=== PATIENT | male | born 1985 | race Caucasian/White ===

== ENCOUNTER 2016-10-05 20:53 | Inpatient (IN) | payer MEDICAID ==
[~2016-10-05] VITALS: Ht 167.6 cm; Wt 115.7 kg
[~2016-10-05 20:53] MED LIST: CARB200T PO; CARB200T6 PO; LAMO25 PO; LAMO25TA3 PO; RISP4 PO
[2016-10-06 00:27] VITALS: BP 130/64
[2016-10-06] MEDS ORDERED: ZOLPIDEM TARTRATE 10 MG TABLET PO PRN (01:00)
[2016-10-06] MEDS ORDERED: HALOPERIDOL 5 MG TABLET PO PRN (01:00)
[2016-10-06 01:26] VITALS: BP 145/70
[2016-10-06] MEDS ORDERED: VENL50TA44 PO (01:40)
[2016-10-06] MEDS ORDERED: CHLO100T24 PO (01:40)
[2016-10-06] MEDS ORDERED: LAMO25 PO (01:40)
[2016-10-06 08:16] VITALS: BP 119/68
[2016-10-06 16:06] VITALS: BP 116/65
[2016-10-07 07:11] VITALS: BP 119/71
[2016-10-07 08:14] VITALS: BP 107/61
[2016-10-07] MEDS ORDERED: LITHIUM CARBONATE 300 MG CAPSULE PO SCH (09:00)
[2016-10-07] MEDS ORDERED: LITH300C3 PO (09:53)
== END 2016-10-07 10:55 | DRG 885 ==
LOC: B3A 10-06 01:02
PROVIDERS: ADMIT Psychiatry & Neurology Psychiatry; ATTEND Psychiatry & Neurology Psychiatry
DX: F25.0 Schizoaffective disorder, bipolar type (principal); F14.20 Cocaine dependence, uncomplicated; R45.851 Suicidal ideations; F17.210 Nicotine dependence, cigarettes, uncomplicated; F10.20 Alcohol dependence, uncomplicated; G56.00 Carpal tunnel syndrome, unspecified upper limb; E03.9 Hypothyroidism, unspecified; Z91.5 Personal history of self-harm; Z79.899 Other long term (current) drug therapy; Z88.5 Allergy status to narcotic agent; Z91.013 Allergy to seafood

== ENCOUNTER 2016-11-18 15:03 | Inpatient (IN) | payer MEDICAID ==
[~2016-11-18] VITALS: Ht 172.7 cm; Wt 115.9 kg
[~2016-11-18 15:03] MED LIST changes: -CARB200T PO; -CARB200T6 PO; -LAMO25 PO; -LAMO25TA3 PO; +LITH300C3 PO; -RISP4 PO
[2016-11-18] MEDS ORDERED: ZOLPIDEM TARTRATE 10 MG TABLET PO PRN (20:30)
[2016-11-18] MEDS ORDERED: LORazepam 2 MG TABLET PO PRN (20:30)
[2016-11-18] MEDS ORDERED: HALOPERIDOL 5 MG TABLET PO PRN (20:30)
[2016-11-18] MEDS ORDERED: PNEUMOCOCCAL VACCINE POLYVALENT 0.5 ML VIAL [PPSV23] IM ONE (21:45)
[2016-11-18 21:51] VITALS: BP 128/76
[2016-11-19 00:09] VITALS: BP 108/73
[2016-11-19] MEDS ORDERED: DiphenhydrAMINE HCL 25 MG CAPSULE PO ONE (00:30)
[2016-11-19 07:44] LABS: BASOPHILS % (AUTO) 0.4 % (0.0-2.0); EOSINOPHILS % (AUTO) 2.6 % (1.0-6.0); HEMATOCRIT 37.6 % (41-53); HEMOGLOBIN 12.2 g/dL (13.5-17.5); LYMPHOCYTES # (AUTO) 2.8 K/uL (1.0-4.8); LYMPHOCYTES % (AUTO) 23.2 % (22.0-44.0); MEAN CORPUSCULAR HEMOGLOBIN 26.9 pg (26.0-34.0); MEAN CORPUSCULAR HGB CONC 32.4 G/dL (31.0-37.0); MEAN CORPUSCULAR VOLUME 83 fL (80-100); MONOCYTES # (AUTO) 0.9 K/uL (0.1-1.0); MONOCYTES % (AUTO) 7.8 % (2.0-9.0); NEUTROPHILS # (AUTO) 7.9 K/uL (1.8-7.7); PLATELET COUNT (AUTO) 400 K/uL (150-450); RED BLOOD CELL COUNT(AUTO) 4.53 MIL/uL (4.50-5.90); RED CELL DISTRIBUTION WIDTH 15.5 % (11.5-14.5)
[2016-11-19 08:27] LABS: ALANINE AMINOTRANSFERASE 32 U/L (12-78); ALBUMIN 3.5 g/dL (3.4-5.0); ANION GAP 11 mmol/L (8-16); ASPARTATE AMINOTRANSFERASE 15 U/L (15-37); BILIRUBIN,TOTAL 0.4 mg/dL (0.1-1.0); CALCIUM, TOTAL 8.6 mg/dL (8.8-10.5); CARBON DIOXIDE 27 mmol/L (22-29); CHLORIDE 102 mmol/L (98-107); CHOL/HDL RATIO 3.3 (4.2-7.3); CREATININE 0.91 mg/dL (0.60-1.30); GLOMERULAR FILTR. RATE CALC > 60 mL/min (>60); POTASSIUM 4.3 mmol/L (3.5-5.1); SODIUM SERUM 140 mmol/L (136-145); TOTAL PROTEIN, SERUM 7.1 g/dL (6.4-8.2); UREA NITROGEN, BLOOD 18 mg/dL (7-18); VALPROIC ACID 23 mcg/mL (50-100)
[2016-11-19] MEDS: NICOTINE 21 MG/24 HOUR PATCH TD SCH (08:59)
[2016-11-19] MEDS: LevETIRAcetam 500 MG TABLET PO SCH ×2 (08:59→17:25)
[2016-11-19] MEDS: CEPHALEXIN MONOHYDRATE 500 MG CAPSULE PO SCH ×4 (08:59→20:01)
[2016-11-19 09:21] VITALS: BP 109/61
[2016-11-19] MEDS: DiphenhydrAMINE HCL 50 MG CAPSULE PO PRN ×2 (11:22→20:01)
[2016-11-19 16:00] VITALS: BP 110/65
[2016-11-19] MEDS: LITHIUM CARBONATE 300 MG CAPSULE PO SCH (17:25)
[2016-11-19] MEDS: GEMFIBROZIL 600 MG TABLET PO SCH (17:42)
[2016-11-19] MEDS: OLANZapine 5 MG TABLET PO SCH (20:01)
[2016-11-19] MEDS ORDERED: IBUPROFEN 600 MG TABLET PO PRN (20:15)
[2016-11-19] MEDS ORDERED: FLUTICASONE/VILANTEROL 200-25 MCG/INH INHALER [14] IH PRN (20:15)
[2016-11-19] MEDS ORDERED: ACETAMINOPHEN 325 MG TABLET PO PRN (20:15)
[2016-11-19] MEDS ORDERED: ALBUTEROL SULFATE HFA 90 MCG/PUFF 8 GM INHALER IH PRN (20:15)
[2016-11-19 21:08] VITALS: BP 118/70
[2016-11-19] MEDS: LEVOTHYROXINE SODIUM 25 MCG TABLET PO SCH (21:15)
[2016-11-19 22:13] VITALS: BP 113/71
[2016-11-20 00:13] VITALS: BP 102/62
[2016-11-20] MEDS: LEVOTHYROXINE SODIUM 25 MCG TABLET PO SCH (06:43)
[2016-11-20] MEDS: GEMFIBROZIL 600 MG TABLET PO SCH ×2 (06:43→16:30)
[2016-11-20 07:56] LABS: BASOPHILS % (AUTO) 0.4 % (0.0-2.0); EOSINOPHILS % (AUTO) 3.3 % (1.0-6.0); HEMATOCRIT 40.2 % (41-53); LYMPHOCYTES # (AUTO) 3.2 K/uL (1.0-4.8); LYMPHOCYTES % (AUTO) 32.3 % (22.0-44.0); MEAN CORPUSCULAR HEMOGLOBIN 26.9 pg (26.0-34.0); MEAN CORPUSCULAR HGB CONC 32.3 G/dL (31.0-37.0); MEAN CORPUSCULAR VOLUME 83 fL (80-100); MONOCYTES # (AUTO) 0.7 K/uL (0.1-1.0); MONOCYTES % (AUTO) 7.2 % (2.0-9.0); NEUTROPHILS # (AUTO) 5.6 K/uL (1.8-7.7); NEUTROPHILS % (AUTO) 56.8 % (40.0-70.0); PLATELET COUNT (AUTO) 386 K/uL (150-450); RED BLOOD CELL COUNT(AUTO) 4.83 MIL/uL (4.50-5.90); RED CELL DISTRIBUTION WIDTH 15.1 % (11.5-14.5); WHITE BLOOD COUNT (AUTO) 9.9 K/uL (4.5-11.0)
[2016-11-20 08:05] LABS: LITHIUM 0.34 mmol/L (0.60-1.20)
[2016-11-20 08:44] VITALS: BP 102/66
[2016-11-20 08:55] LABS: ALANINE AMINOTRANSFERASE 26 U/L (12-78); ALBUMIN 3.6 g/dL (3.4-5.0); ANION GAP 7 mmol/L (8-16); ASPARTATE AMINOTRANSFERASE 13 U/L (15-37); BILIRUBIN,TOTAL 0.4 mg/dL (0.1-1.0); CARBON DIOXIDE 29 mmol/L (22-29); CHLORIDE 105 mmol/L (98-107); CREATININE 0.81 mg/dL (0.60-1.30); GLOMERULAR FILTR. RATE CALC > 60 mL/min (>60); POTASSIUM 4.6 mmol/L (3.5-5.1); SODIUM SERUM 141 mmol/L (136-145); THYROID STIMULATING HORMONE 1.56 uIU/mL (0.36-3.74); TOTAL PROTEIN, SERUM 7.1 g/dL (6.4-8.2); UREA NITROGEN, BLOOD 19 mg/dL (7-18)
[2016-11-20] MEDS: FLUTICASONE/VILANTEROL 200-25 MCG/INH INHALER [14] IH SCH (09:00)
[2016-11-20] MEDS: LevETIRAcetam 500 MG TABLET PO SCH ×2 (09:56→16:59)
[2016-11-20] MEDS: LamoTRIgine 100 MG TABLET PO SCH (09:56)
[2016-11-20] MEDS: LITHIUM CARBONATE 300 MG CAPSULE PO SCH ×2 (09:56→16:59)
[2016-11-20] MEDS: FLUoxetine HCL 20 MG CAPSULE PO SCH (09:56)
[2016-11-20] MEDS: CEPHALEXIN MONOHYDRATE 500 MG CAPSULE PO SCH ×4 (09:56→20:59)
[2016-11-20] MEDS: SULFAMETHOX/TRIMETH DS 800-160 MG/TABLET PO SCH ×2 (09:56→16:59)
[2016-11-20] MEDS: NICOTINE 21 MG/24 HOUR PATCH TD SCH (09:58)
[2016-11-20] MEDS: DiphenhydrAMINE HCL 50 MG CAPSULE PO PRN ×2 (11:22→18:15)
[2016-11-20] MEDS: OLANZapine 5 MG TABLET PO SCH (20:59)
[2016-11-21] MEDS: LEVOTHYROXINE SODIUM 25 MCG TABLET PO SCH (06:30)
[2016-11-21] MEDS: GEMFIBROZIL 600 MG TABLET PO SCH ×2 (06:37→16:09)
[2016-11-21] MEDS: LamoTRIgine 100 MG TABLET PO SCH (09:00)
[2016-11-21] MEDS: LITHIUM CARBONATE 300 MG CAPSULE PO SCH ×3 (09:00→17:00)
[2016-11-21] MEDS: FLUTICASONE/VILANTEROL 200-25 MCG/INH INHALER [14] IH SCH (09:00)
[2016-11-21] MEDS: FLUoxetine HCL 20 MG CAPSULE PO SCH (09:00)
[2016-11-21 09:03] VITALS: BP 108/62
[2016-11-21] MEDS: LevETIRAcetam 500 MG TABLET PO SCH ×2 (09:34→16:10)
[2016-11-21] MEDS: SULFAMETHOX/TRIMETH DS 800-160 MG/TABLET PO SCH ×2 (09:34→16:10)
[2016-11-21] MEDS: CEPHALEXIN MONOHYDRATE 500 MG CAPSULE PO SCH ×4 (09:34→20:43)
[2016-11-21] MEDS: NICOTINE 21 MG/24 HOUR PATCH TD SCH (09:34)
[2016-11-21] MEDS: DiphenhydrAMINE HCL 50 MG CAPSULE PO PRN (14:53)
[2016-11-21 16:00] VITALS: BP 117/73
[2016-11-21] MEDS: OLANZapine 5 MG TABLET PO SCH (20:43)
[2016-11-22] MEDS: LEVOTHYROXINE SODIUM 25 MCG TABLET PO SCH (06:35)
[2016-11-22] MEDS: GEMFIBROZIL 600 MG TABLET PO SCH ×2 (06:35→16:32)
[2016-11-22 06:47] VITALS: BP 102/67
[2016-11-22 08:45] VITALS: BP 105/70
[2016-11-22] MEDS: FLUTICASONE/VILANTEROL 200-25 MCG/INH INHALER [14] IH SCH (09:43)
[2016-11-22] MEDS: NICOTINE 21 MG/24 HOUR PATCH TD SCH (09:43)
[2016-11-22] MEDS: PROPRANOLOL HCL 10 MG TABLET PO SCH ×2 (09:43→16:33)
[2016-11-22] MEDS: CEPHALEXIN MONOHYDRATE 500 MG CAPSULE PO SCH ×4 (09:44→20:00)
[2016-11-22] MEDS: SULFAMETHOX/TRIMETH DS 800-160 MG/TABLET PO SCH ×2 (09:44→16:33)
[2016-11-22] MEDS: LevETIRAcetam 500 MG TABLET PO SCH ×2 (09:44→16:33)
[2016-11-22] MEDS: LITHIUM CARBONATE 300 MG CAPSULE PO SCH ×2 (09:44→16:33)
[2016-11-22] MEDS: FLUoxetine HCL 20 MG CAPSULE PO SCH (09:44)
[2016-11-22] MEDS: LamoTRIgine 100 MG TABLET PO SCH (09:44)
[2016-11-22] MEDS: DiphenhydrAMINE HCL 50 MG CAPSULE PO PRN (11:53)
[2016-11-22 16:00] VITALS: BP 116/71
[2016-11-22] MEDS: OLANZapine 5 MG TABLET PO SCH (20:00)
[2016-11-23 06:32] VITALS: BP 115/60
[2016-11-23] MEDS: LEVOTHYROXINE SODIUM 25 MCG TABLET PO SCH (06:50)
[2016-11-23] MEDS: GEMFIBROZIL 600 MG TABLET PO SCH (06:59)
[2016-11-23 08:13] VITALS: BP 116/67
[2016-11-23] MEDS: PROPRANOLOL HCL 10 MG TABLET PO SCH (09:33)
[2016-11-23] MEDS: FLUTICASONE/VILANTEROL 200-25 MCG/INH INHALER [14] IH SCH (09:33)
[2016-11-23] MEDS: NICOTINE 21 MG/24 HOUR PATCH TD SCH (09:33)
[2016-11-23] MEDS: LevETIRAcetam 500 MG TABLET PO SCH (09:33)
[2016-11-23] MEDS: SULFAMETHOX/TRIMETH DS 800-160 MG/TABLET PO SCH (09:33)
[2016-11-23] MEDS: FLUoxetine HCL 20 MG CAPSULE PO SCH (09:33)
[2016-11-23] MEDS: LamoTRIgine 100 MG TABLET PO SCH (09:33)
[2016-11-23] MEDS: LITHIUM CARBONATE 300 MG CAPSULE PO SCH (09:33)
[2016-11-23] MEDS: CEPHALEXIN MONOHYDRATE 500 MG CAPSULE PO SCH ×2 (09:34→12:51)
[2016-11-23] MEDS ORDERED: MAGNESIUM HYDROXIDE SUSPENSION 30 ML UDCUP PO PRN (10:30)
[2016-11-23] MEDS ORDERED: GEMF600T3 PO (13:12)
[2016-11-23] MEDS ORDERED: OLAN5TAB2 PO (13:12)
[2016-11-23] MEDS ORDERED: LEVO25TA9 PO (13:12)
[2016-11-23] MEDS ORDERED: FLUO-191 PO (13:12)
[2016-11-23] MEDS ORDERED: CEPH500 PO (13:12)
[2016-11-23] MEDS ORDERED: LEVE500T53 PO (13:12)
[2016-11-23] MEDS ORDERED: LAMO100 PO (13:12)
[2016-11-23] MEDS ORDERED: PROP10 PO (13:12)
[2016-11-23] MEDS ORDERED: SULF1TAB42 PO (13:12)
[2016-11-23] MEDS ORDERED: FLUT1BLS PO (13:12)
== END 2016-11-23 13:20 | disposition home or self-care (01) | DRG 750 ==
LOC: B2S 20:31
PROVIDERS: ADMIT Psychiatry & Neurology Psychiatry; ATTEND Psychiatry & Neurology Psychiatry
DX: F25.9 Schizoaffective disorder, unspecified (principal); R45.851 Suicidal ideations; G40.909 Epilepsy, unspecified, not intractable, without status epilepticus; L02.413 Cutaneous abscess of right upper limb; E78.5 Hyperlipidemia, unspecified; E03.9 Hypothyroidism, unspecified; G56.02 Carpal tunnel syndrome, left upper limb; F60.3 Borderline personality disorder; R45.87 Impulsiveness; F32.9 Major depressive disorder, single episode, unspecified; J45.909 Unspecified asthma, uncomplicated; F14.90 Cocaine use, unspecified, uncomplicated; F17.200 Nicotine dependence, unspecified, uncomplicated; Z79.899 Other long term (current) drug therapy; Z91.5 Personal history of self-harm; Z88.6 Allergy status to analgesic agent; Z98.84 Bariatric surgery status; Z28.21 Immunization not carried out because of patient refusal
CPT/HCPCS: 84439; 84443; 87081; J3535